=== PATIENT | female | born 1965 | race Caucasian/White ===

== ENCOUNTER 2017-10-03 09:53 | Day surgery (SDC) | payer BC ==
[~2017-10-03 09:53] MED LIST: RINGER'S SOLUTION,LACTATED 1,000 ML IV PRN; ceFAZolin SODIUM 2 GM in DEXTROSE 5 % IN WATER 50 ML IV PRN
[2017-10-03] MEDS ORDERED: RINGER'S SOLUTION,LACTATED 1,000 ML IV ONE ×2 (10:47→12:15)
[2017-10-03] MEDS ORDERED: LIDOCAINE HCL 50 ML VIAL IJ ONE (11:30)
[2017-10-03] MEDS ORDERED: BUPIVACAINE HCL 50 ML VIAL IJ ONE (11:30)
[2017-10-03] MEDS ORDERED: HYDROcodone/ACETAMINOPHEN 1 EACH TABLET PO ONE (14:15)
[2017-10-03 14:56] VITALS: BP 138/77
== END 2017-10-03 09:54 | disposition home or self-care (01) ==
LOC: AMB 09:53
PROVIDERS: ATTEND Student in an Organized Health Care Education/Training Program
PROC: 0QSN04Z Reposition Right Metatarsal with Internal Fixation Device, Open Approach (ICD-10-PCS; 2017-10-03)
PROC: 0QSQ04Z Reposition Right Toe Phalanx with Internal Fixation Device, Open Approach (ICD-10-PCS; 2017-10-03)
PROC: 0QBN0ZZ Excision of Right Metatarsal, Open Approach (ICD-10-PCS; principal; 2017-10-03 12:00)
DX: M21.611 Bunion of right foot (principal); M20.5X1 Other deformities of toe(s) (acquired), right foot; F17.200 Nicotine dependence, unspecified, uncomplicated; Z68.33 Body mass index [BMI] 33.0-33.9, adult

== ENCOUNTER 2017-10-20 08:05 | Emergency (ER) | payer BC ==
--- NOTE | 2017-10-20 08:37 | ERNOTE ---
Lower Extremity HPI - Narrative Date of Service: 10/20/17 - General Lower Extremities Pain: leg: right Time Seen by Provider: 10/20/17 08:13 Source: patient Exam Limitations: no limitations - Immun/Allergies/Home Medications Immunizations: IMMUNIZATION HX Immunizations Up to Date Yes History of Influenza Vaccine No Hx Pneumococcal Vaccination No Allergies/Adverse Reactions: Allergies Allergy/AdvReac Type Severity Reaction Status Date / Time bee venom protein (honey bee) Allergy Intermediate Hives Verified 10/20/17 08:18 Home Medications: HOME MEDICATIONS Calcium Carbonate/Vitamin D3 [Calcium 600 + Vit D 200 Tablet] 1 each PO DAILY [Last Taken Unknown] Multivitamins [Multivitamin Henry] 1 cap PO DAILY 09/29/16 [Last Taken Unknown] - History of Present Illness Narrative: Patient is a 51 year old female who presents to the emergency room complaining of right proximal leg pain that has been ongoing since this morning. Patient reports a prominent varicose vein with associated pain noted at the medial aspect of a small right leg region. Has had problems with varicose vein in the past due to time treated conservatively. Apparently she had a recent toe surgery 2 weeks ago was weight she has a blood clot of his lower leg area. She denies any swelling, redness, edema. Occurred: this morning Associated Symptoms: Denies: unable to bear weight, snapping, popping sensation , dizzy/light headedness, headache, weakness, sensory loss, chest pain, vomiting /diarrhea, bowel/bladder problems Review of Systems - Review of Systems Constitutional: Present: See HPI Respiratory: Present: See HPI Cardiology: Present: See HPI Gastrointestinal/Abdominal: Present: See HPI Musculoskeletal: Present: See HPI Skin: Present: See HPI Neurological: Present: See HPI Endocrine: Present: See HPI Hematologic/Lymphatic: Present: See HPI Psych: Present: See HPI - Patient's Past Medical History Patient History - Medical: No pertinent hx Patient History - Cardiac/Respiratory: No pertinent hx Patient History - Cancer: No Hx of Cancer, Skin Patient History - Surgical Procedures: Colonoscopy, Tubal Ligation, Other Patient History - Other: None - Family History Father Family History - Medical: No pertinent hx Family History - Cardiac/Respiratory: Myocardial Infarction, Pulmonary Embolism Family History - Cancer: Lung Mother Family History - Medical: No pertinent hx Family History - Cardiac/Respiratory: Arrhythmias Family History - Cancer: No pertinent family hx - Social History Living Situations: home Abuse History: No History of abuse Psych History: No pertinent hx Alcohol Use: none Drug Use: none - Immunizations Immunizations Up to Date: Yes Hx Pneumococcal Vaccination: No History of Influenza Vaccine: No Physical Exam - Physical Exam General Appearance: Present: wd/wn, alert, no apparent distress Head Exam: Present: normal inspection, no evidence of injury Eye Exam: Normal inspection: bilateral, PERRL: bilateral, EOMI: bilateral Neck: Present: normal inspection, nontender Respiratory: Present: no respiratory distress, normal breath sounds Cardiovascular/Chest: Present: regular rate, rhythm, no murmur, normal peripheral pulses Extremity Exam: Present: other - inspection of the right extremity was consistent with a varicose vein noted up proximal aspect of the medial right lower extremity. She appears to be tender medial aspect of the proximal tibia region. Palpation of the knee area is unremarkable for any abnormality of pain. She appears to demonstrate negativity to Homans sign or Mehrdad sign. The pedal edema on extremity swelling. Neurological Exam: Present: alert, oriented, normal mood/affect, no motor/ sensory deficits Lymphatic Exam: Present: no adenopathy ED Progress - Results and Orders Patient's Lab Results:: I have reviewed the patient's lab results. - Vital Signs Patient's Vital Signs:: I have reviewed the patient's vital signs. Vital Signs: Vital Signs 10/20/17 08:13 Temperature 36.1 C L Pulse Rate 77 Respiratory 12 Rate Blood Pressure 151/98 O2 Sat by Pulse 99 Oximetry - X-Ray X-Ray #1 X-Ray: leg Interpretation: Interp. by me, Reviewed by me - Progress/Reassessment Chief Complaint: Lower Extremity Pain/ Injury Progress:: Unchanged - Transfer of Care Expected Disposition: Discharge Departure Clinical Impression: Varicose ulcer of right lower extremity Clinical Impression: (Ruled Out): Varicose vein of leg, - Departure Disposition: Home self-care Condition: Stable Instructions: Varicose Veins Referrals: Ary Melvin DO [Primary Care Provider] -
[2017-10-20 09:42] VITALS: BP 119/82
== END 2017-10-20 09:58 | disposition home or self-care (01) ==
LOC: ER 08:05
DX: L97.819 Non-pressure chronic ulcer of other part of right lower leg with unspecified severity (principal)